=== PATIENT | female | born 2000 | race Two or more races ===

== ENCOUNTER 2019-06-30 21:38 | Emergency (ER) | payer OTHER ==
[~2019-06-30] VITALS: Ht 157.5 cm; Wt 81.6 kg
--- NOTE | 2019-06-30 21:55 | NUR ---
LEONARD FROM HOME C/O HEADACHE X30 MIN [employer]. 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
[2019-06-30] MEDS ORDERED: KETOROLAC TROMETHAMINE INJ 30 MG/ML VIAL IV ONE (22:00)
[2019-06-30] MEDS ORDERED: diphenhydrAMINE HCL 50 MG/ML VIAL IV ONE (22:00)
[2019-06-30] MEDS ORDERED: IV NS 0.9% 1,000 ML BAG IV ONE (22:00)
[2019-06-30] MEDS ORDERED: METOCLOPRAMIDE HCL 10 MG/2 ML VIAL IV ONE (22:00)
[2019-06-30] MEDS ORDERED: METOCLOPRAMIDE HCL 10 MG/2 ML VIAL ONE (22:01)
[2019-06-30] MEDS ORDERED: diphenhydrAMINE HCL 50 MG/ML VIAL ONE (22:01)
[2019-06-30] MEDS ORDERED: KETOROLAC TROMETHAMINE 15 MG/ML VIAL ONE (22:01)
--- NOTE | 2019-06-30 22:05 | NUR ---
PT TAKEN TO CT SCAN
--- NOTE | 2019-06-30 23:21 | NUR ---
PT IN BED SLEEPING, IN NO APPARENT PAIN OR DISCOMFORT
--- NOTE | 2019-07-01 00:01 | NUR ---
Patient discharged to home in stable condition. Written and verbal after care instructions given. Patient verbalizes understanding of instruction.
[2019-07-01 00:03] VITALS: BP 143/89
== END 2019-07-01 00:03 | disposition home or self-care (01) ==
LOC: ER 21:41
DX: R51 Headache (principal); F17.200 Nicotine dependence, unspecified, uncomplicated
CPT/HCPCS: 70450; 96374; 96375; 99284; J1200; J1885; J2765; J7030